=== PATIENT | male | born 1955 | race Caucasian/White ===

== ENCOUNTER 2017-12-01 13:18 | Inpatient (IN) | payer MEDICAID, OTHER ==
[2017-12-01] MEDS: METHYLPREDNISOLONE 125 MG INJ IV (14:04)
[2017-12-01] MEDS: DIPHENHYDRAMINE 50 MG INJ IV ×2 (14:04→21:46)
[2017-12-01] MEDS: FAMOTIDINE 20 MG INJ INJ (14:04)
[2017-12-01 14:07] LABS: ADD MAN DIFF? NO
[2017-12-01 14:10] LABS: WHITE BLOOD COUNT 8.6 10^3/ul (4.8-10.8)
[2017-12-01 14:10] LABS: BASOPHILS % 0.2 % (0.0-2.0); EOSINOPHILS # 0.2 10^3/ul (0.0-0.5); HEMATOCRIT 44.1 % (42.0-52.0); HEMOGLOBIN 13.9 g/dl (14.0-18.0); LYMPHOCYTES # 2.7 10^3/ul (0.8-2.9); LYMPHOCYTES % 31.5 % (15.0-51.0); MEAN CORPUSCULAR HEMOGLOBIN 25.8 pg (29.0-33.0); MEAN CORPUSCULAR HGB CONC 31.5 g/dl (32.0-37.0); MEAN PLATELET VOLUME 9.2 fl (7.4-10.4); MONOCYTE # 0.9 10^3/ul (0.3-0.9); MONOCYTES % 10.2 % (0.0-11.0); NEUTROPHIL # 4.8 10^3/ul (1.6-7.5); NEUTROPHILS % 55.9 % (39.0-77.0); PLATELET COUNT 225 10^3/UL (140-415); RED BLOOD COUNT 5.38 10^6/ul (4.70-6.10); RED CELL DISTRIBUTION WIDTH 14.6 % (11.5-14.5)
[2017-12-01 14:26] LABS: ALANINE AMINOTRANSFERASE 39 IU/L (13-69); ALBUMIN 4.5 g/dl (3.3-4.9); ALBUMIN/GLOBULIN RATIO 1.12; ALKALINE PHOSPHATASE 71 IU/L (42-121); ANION GAP 19 (8-16); ASPARTATE AMINO TRANSFERASE 36 IU/L (15-46); BILIRUBIN,INDIRECT 0.3 mg/dl (0-1.1); BILIRUBIN,TOTAL 0.3 mg/dl (0.2-1.3); BLOOD UREA NITROGEN 11 mg/dl (7-20); CARBON DIOXIDE 25 mmol/L (21-31); CHLORIDE 102 mmol/L (97-110); CREATININE 0.73 mg/dl (0.61-1.24); GLUCOSE 99 mg/dl (70-220); POTASSIUM 3.9 mmol/L (3.5-5.1); SODIUM 142 mmol/L (135-144); TOTAL PROTEIN 8.5 g/dl (6.1-8.1)
[2017-12-01 14:38] LABS: B-TYPE NATRIURETIC PEPTIDE 43 PG/ML (0-125)
[2017-12-01 14:39] LABS: TROPONIN-I < 0.012 ng/ml (0.00-0.12)
[2017-12-01] MEDS ORDERED: ACETAMINOPHEN 325 MG TAB PO ×2 (15:00→15:30)
[2017-12-01] MEDS ORDERED: ONDANSETRON 4 MG INJ IV ×2 (15:00→15:30)
[2017-12-01] MEDS ORDERED: GLUCAGON 1 MG INJ IM (15:30)
[2017-12-01] MEDS ORDERED: DEXTROSE 50% 50 ML SYRINGE IV ×2 (15:30)
[2017-12-01] MEDS ORDERED: NACL 0.9% 3 ML SYG IV (15:30)
[2017-12-01] MEDS ORDERED: DIPHENHYDRAMINE 50 MG INJ IV (15:30)
[2017-12-01] MEDS ORDERED: MAGNESIUM HYDROXIDE 30ML CUP PO (15:30)
[2017-12-01] MEDS ORDERED: DOCUSATE SODIUM 100 MG CAP PO (15:30)
[2017-12-01] MEDS ORDERED: GLUCOSE GEL 15 GRAM TUBE BUCCAL (15:30)
[2017-12-01] MEDS ORDERED: LORAZEPAM 0.5 MG TAB PO (15:30)
[2017-12-01] MEDS ORDERED: GLUCOSE GEL 15 GRAM TUBE PO ×2 (15:30)
[2017-12-01 15:52] LABS: HEMOGLOBIN A1C 6.5 % (0-5.9)
[2017-12-01] MEDS: predniSONE 20 MG TAB PO (16:45)
[2017-12-01] MEDS ORDERED: METHYLPREDNISOLONE 125 MG INJ IV (18:00)
[2017-12-01] MEDS: INSULIN ASPART [NOVOLOG] 3 ML PEN SC ×2 (18:00→20:47)
[2017-12-01 20:49] LABS: CREATINE KINASE 216 IU/L (23-200)
[2017-12-01 21:01] LABS: CK INDEX 0.9
[2017-12-01 21:02] LABS: TROPONIN-I < 0.012 ng/ml (0.00-0.12)
[2017-12-02 03:07] LABS: CREATINE KINASE 175 IU/L (23-200)
[2017-12-02 03:19] LABS: CK INDEX 1.1
[2017-12-02 03:22] LABS: CK-MB 1.85 ng/ml (0.0-2.4); TROPONIN-I < 0.012 ng/ml (0.00-0.12)
[2017-12-02] MEDS: DIPHENHYDRAMINE 50 MG INJ IV ×2 (05:41→13:43)
[2017-12-02] MEDS: PANTOPRAZOLE (EC) 40 MG TAB PO (05:41)
[2017-12-02] MEDS: AMLODIPINE 10 MG TAB PO (08:05)
[2017-12-02] MEDS: predniSONE 20 MG TAB PO (08:05)
[2017-12-02] MEDS: INSULIN ASPART [NOVOLOG] 3 ML PEN SC ×2 (08:07→12:13)
[2017-12-02] MEDS ORDERED: AMLODIPINE 5 MG TAB PO (09:00)
[2017-12-02 09:33] LABS: ADD MAN DIFF? NO
[2017-12-02 09:41] LABS: BASOPHILS % 0.1 % (0.0-2.0); HEMATOCRIT 44.1 % (42.0-52.0); HEMOGLOBIN 14.4 g/dl (14.0-18.0); LYMPHOCYTES # 1.7 10^3/ul (0.8-2.9); LYMPHOCYTES % 16.8 % (15.0-51.0); MEAN CORPUSCULAR HEMOGLOBIN 26.4 pg (29.0-33.0); MEAN CORPUSCULAR HGB CONC 32.7 g/dl (32.0-37.0); MEAN CORPUSCULAR VOLUME 80.8 fl (82.0-101.0); MEAN PLATELET VOLUME 9.6 fl (7.4-10.4); MONOCYTE # 0.7 10^3/ul (0.3-0.9); MONOCYTES % 6.8 % (0.0-11.0); NEUTROPHIL # 7.7 10^3/ul (1.6-7.5); NEUTROPHILS % 75.9 % (39.0-77.0); PLATELET COUNT 254 10^3/UL (140-415); RED BLOOD COUNT 5.46 10^6/ul (4.70-6.10); RED CELL DISTRIBUTION WIDTH 14.8 % (11.5-14.5)
[2017-12-02 09:41] LABS: WHITE BLOOD COUNT 10.2 10^3/ul (4.8-10.8)
[2017-12-02 10:12] LABS: ANION GAP 19 (8-16); BLOOD UREA NITROGEN 17 mg/dl (7-20); CALCIUM 9.3 mg/dl (8.4-10.2); CARBON DIOXIDE 22 mmol/L (21-31); CHLORIDE 104 mmol/L (97-110); CREATININE 0.84 mg/dl (0.61-1.24); GLUCOSE 196 mg/dl (70-220); MAGNESIUM 1.9 mg/dl (1.7-2.5); POTASSIUM 4.2 mmol/L (3.5-5.1); SODIUM 141 mmol/L (135-144)
== END 2017-12-02 15:30 | disposition home or self-care (01) | DRG 916 ==
LOC: E/R 13:18 → MS4 15:00
DX: T78.3XXA Angioneurotic edema, initial encounter (principal); T88.7XXA Unspecified adverse effect of drug or medicament, initial encounter; T46.4X5A Adverse effect of angiotensin-converting-enzyme inhibitors, initial encounter; I10 Essential (primary) hypertension; T78.1XXA Other adverse food reactions, not elsewhere classified, initial encounter; E11.9 Type 2 diabetes mellitus without complications; Z79.4 Long term (current) use of insulin
CPT/HCPCS: 36415; 71045; 80048; 80053; 82550; 82553; 82962; 83036; 83735; 83880; 84484; 85025; 86850; 86900; 86901; 93005; 96374; 96375; 99291-25

== ENCOUNTER 2018-01-20 04:01 | Observation (INO) | payer MEDICAID, OTHER ==
[2018-01-20] MEDS: ASPIRIN 325 MG TAB PO (06:56)
[2018-01-20 07:01] LABS: ADD MAN DIFF? NO
[2018-01-20 07:04] LABS: WHITE BLOOD COUNT 9.1 10^3/ul (4.8-10.8)
[2018-01-20 07:04] LABS: BASOPHILS % 0.2 % (0.0-2.0); EOSINOPHILS # 0.2 10^3/ul (0.0-0.5); EOSINOPHILS % 1.6 % (0.0-7.0); HEMATOCRIT 43.8 % (42.0-52.0); HEMOGLOBIN 14.5 g/dl (14.0-18.0); LYMPHOCYTES # 2.5 10^3/ul (0.8-2.9); LYMPHOCYTES % 27.6 % (15.0-51.0); MEAN CORPUSCULAR HEMOGLOBIN 27.3 pg (29.0-33.0); MEAN CORPUSCULAR HGB CONC 33.1 g/dl (32.0-37.0); MEAN CORPUSCULAR VOLUME 82.5 fl (82.0-101.0); MEAN PLATELET VOLUME 9.2 fl (7.4-10.4); MONOCYTE # 0.8 10^3/ul (0.3-0.9); MONOCYTES % 8.6 % (0.0-11.0); NEUTROPHIL # 5.6 10^3/ul (1.6-7.5); NEUTROPHILS % 61.7 % (39.0-77.0); PLATELET COUNT 240 10^3/UL (140-415); RED BLOOD COUNT 5.31 10^6/ul (4.70-6.10); RED CELL DISTRIBUTION WIDTH 14.7 % (11.5-14.5)
[2018-01-20 07:28] LABS: ALANINE AMINOTRANSFERASE 42 IU/L (13-69); ALBUMIN 4.6 g/dl (3.3-4.9); ALBUMIN/GLOBULIN RATIO 1.17; ALKALINE PHOSPHATASE 82 IU/L (42-121); ANION GAP 16 (8-16); ASPARTATE AMINO TRANSFERASE 31 IU/L (15-46); BILIRUBIN,INDIRECT 0.4 mg/dl (0-1.1); BILIRUBIN,TOTAL 0.4 mg/dl (0.2-1.3); BLOOD UREA NITROGEN 13 mg/dl (7-20); CALCIUM 9.1 mg/dl (8.4-10.2); CARBON DIOXIDE 28 mmol/L (21-31); CHLORIDE 103 mmol/L (97-110); CREATININE 0.69 mg/dl (0.61-1.24); GLUCOSE 154 mg/dl (70-220); SODIUM 143 mmol/L (135-144); TOTAL PROTEIN 8.5 g/dl (6.1-8.1)
[2018-01-20 07:40] LABS: B-TYPE NATRIURETIC PEPTIDE 25 PG/ML (0-125)
[2018-01-20 07:43] LABS: TROPONIN-I < 0.012 ng/ml (0.000-0.120)
[2018-01-20] MEDS ORDERED: morphine 2 MG INJ IV (10:00)
[2018-01-20] MEDS ORDERED: MAGNESIUM HYDROXIDE 30ML CUP PO (10:00)
[2018-01-20] MEDS ORDERED: NITROGLYCERIN (SL) 0.4 MG TAB SL (10:00)
[2018-01-20] MEDS ORDERED: ACETAMINOPHEN 325 MG TAB PO (10:00)
[2018-01-20] MEDS ORDERED: NACL 0.9% 3 ML SYG IV (10:00)
[2018-01-20] MEDS: MAGNESIUM HYDROXIDE 30ML CUP PO (10:16)
[2018-01-20 11:15] LABS: HEMOGLOBIN A1C 7.7 % (0-5.9)
[2018-01-20 11:44] LABS: HDL CHOLESTEROL 50 mg/dl (30-78); LDL CHOLESTEROL,CALCULATED 75 mg/dl; TRIGLYCERIDES 133 mg/dl (0-149)
[2018-01-20 11:44] LABS: CHOLESTEROL 152 mg/dl (100-200)
[2018-01-20] MEDS: INSULIN ASPART [NOVOLOG] 3 ML PEN SC ×3 (12:00→21:00)
[2018-01-20 12:49] LABS: CREATINE KINASE 89 IU/L (23-200)
[2018-01-20 12:58] LABS: CK INDEX 1.5
[2018-01-20 13:04] LABS: CK-MB 1.31 ng/ml (0.0-2.4); TROPONIN-I < 0.012 ng/ml (0.000-0.120)
[2018-01-20] MEDS: IBUPROFEN 600 MG TAB PO ×2 (14:00→21:06)
[2018-01-20] MEDS: ONDANSETRON 4 MG INJ IV (17:13)
[2018-01-20 17:14] LABS: CREATINE KINASE 90 IU/L (23-200)
[2018-01-20 17:27] LABS: CK INDEX 1.4
[2018-01-20 17:28] LABS: CK-MB 1.29 ng/ml (0.0-2.4); TROPONIN-I < 0.012 ng/ml (0.000-0.120)
[2018-01-20] MEDS ORDERED: NON-FORMULARY/PATIENT OWN MED (Simvastatin* (Zocor*) 40 MG) PO (21:00)
[2018-01-20] MEDS: INSULIN GLARGINE [LANtus] 3 ML PEN SC (21:05)
[2018-01-20] MEDS: FAMOTIDINE 20 MG TAB PO (21:05)
[2018-01-20] MEDS: DOCUSATE SODIUM 100 MG CAP PO (21:06)
[2018-01-20] MEDS: ATORVASTATIN 20 MG TAB PO (21:06)
[2018-01-21] MEDS: ACCU-CHEK XX (02:00)
[2018-01-21 07:29] LABS: ADD MAN DIFF? NO
[2018-01-21 07:39] LABS: WHITE BLOOD COUNT 7.1 10^3/ul (4.8-10.8)
[2018-01-21 07:39] LABS: BASOPHILS % 0.4 % (0.0-2.0); EOSINOPHILS # 0.2 10^3/ul (0.0-0.5); EOSINOPHILS % 3.1 % (0.0-7.0); HEMATOCRIT 42.6 % (42.0-52.0); HEMOGLOBIN 13.9 g/dl (14.0-18.0); LYMPHOCYTES # 2.5 10^3/ul (0.8-2.9); LYMPHOCYTES % 35.1 % (15.0-51.0); MEAN CORPUSCULAR HEMOGLOBIN 26.9 pg (29.0-33.0); MEAN CORPUSCULAR HGB CONC 32.6 g/dl (32.0-37.0); MEAN CORPUSCULAR VOLUME 82.6 fl (82.0-101.0); MEAN PLATELET VOLUME 9.2 fl (7.4-10.4); MONOCYTE # 0.7 10^3/ul (0.3-0.9); MONOCYTES % 10.3 % (0.0-11.0); NEUTROPHIL # 3.6 10^3/ul (1.6-7.5); NEUTROPHILS % 50.8 % (39.0-77.0); PLATELET COUNT 239 10^3/UL (140-415); RED BLOOD COUNT 5.16 10^6/ul (4.70-6.10); RED CELL DISTRIBUTION WIDTH 14.6 % (11.5-14.5)
[2018-01-21] MEDS: INSULIN ASPART [NOVOLOG] 3 ML PEN SC ×2 (07:53→11:50)
[2018-01-21 08:04] LABS: ALANINE AMINOTRANSFERASE 36 IU/L (13-69); ALBUMIN 4.1 g/dl (3.3-4.9); ALKALINE PHOSPHATASE 60 IU/L (42-121); ANION GAP 12 (8-16); ASPARTATE AMINO TRANSFERASE 29 IU/L (15-46); BILIRUBIN,INDIRECT 0.4 mg/dl (0-1.1); BILIRUBIN,TOTAL 0.4 mg/dl (0.2-1.3); BLOOD UREA NITROGEN 13 mg/dl (7-20); CALCIUM 8.7 mg/dl (8.4-10.2); CARBON DIOXIDE 29 mmol/L (21-31); CHLORIDE 106 mmol/L (97-110); CREATININE 0.69 mg/dl (0.61-1.24); GLUCOSE 121 mg/dl (70-220); MAGNESIUM 2.1 mg/dl (1.7-2.5); PHOSPHORUS 3.6 mg/dl (2.5-4.9); POTASSIUM 3.8 mmol/L (3.5-5.1); SODIUM 143 mmol/L (135-144); TOTAL PROTEIN 7.5 g/dl (6.1-8.1)
[2018-01-21] MEDS: FAMOTIDINE 20 MG TAB PO (08:18)
[2018-01-21] MEDS: IBUPROFEN 600 MG TAB PO ×2 (08:18→13:00)
[2018-01-21] MEDS: ASPIRIN 81 MG TAB PO (08:18)
[2018-01-21] MEDS: ENOXAPARIN 40 MG/0.4 ML SYG SC (08:19)
[2018-01-21] MEDS: AMLODIPINE 10 MG TAB PO (08:20)
== END 2018-01-21 13:30 | disposition home or self-care (01) ==
LOC: E/R 04:01 → MS3 07:53 → TEL 19:53
DX: R07.89 Other chest pain (principal); M94.0 Chondrocostal junction syndrome [Tietze]; I10 Essential (primary) hypertension; E11.9 Type 2 diabetes mellitus without complications; E78.5 Hyperlipidemia, unspecified; M19.90 Unspecified osteoarthritis, unspecified site; K59.00 Constipation, unspecified
CPT/HCPCS: 36415; 71045; 80053; 80061; 82550; 82553; 82962; 83036; 83735; 83880; 84100; 84443; 84484; 85025; 93005; 93306; 99285-25; G0378

== ENCOUNTER → 2018-04-18 | Emergency (ER) | payer OTHER, MEDICAID | END | disposition home or self-care (01) | LOC: E/R 18:53 | DX: S90.511A Abrasion, right ankle, initial encounter (principal); L03.115 Cellulitis of right lower limb; I10 Essential (primary) hypertension; E11.9 Type 2 diabetes mellitus without complications; W18.39XA Other fall on same level, initial encounter; Y92.9 Unspecified place or not applicable; Z79.82 Long term (current) use of aspirin; Z79.84 Long term (current) use of oral hypoglycemic drugs | CPT/HCPCS: 82962; 99284 ==

== ENCOUNTER 2018-05-29 18:06 | Observation (INO) | payer OTHER ==
[2018-05-29 19:00] LABS: ADD MAN DIFF? NO
[2018-05-29 19:01] LABS: BASOPHILS % 0.4 % (0.0-2.0); EOSINOPHILS # 0.3 10^3/ul (0.0-0.5); EOSINOPHILS % 3.1 % (0.0-7.0); HEMOGLOBIN 14.2 g/dl (14.0-18.0); LYMPHOCYTES # 2.5 10^3/ul (0.8-2.9); LYMPHOCYTES % 30.8 % (15.0-51.0); MEAN CORPUSCULAR HEMOGLOBIN 26.6 pg (29.0-33.0); MEAN CORPUSCULAR VOLUME 80.7 fl (82.0-101.0); MEAN PLATELET VOLUME 9.1 fl (7.4-10.4); MONOCYTE # 1.1 10^3/ul (0.3-0.9); MONOCYTES % 12.9 % (0.0-11.0); NEUTROPHIL # 4.3 10^3/ul (1.6-7.5); NEUTROPHILS % 52.6 % (39.0-77.0); PLATELET COUNT 259 10^3/UL (140-415); RED BLOOD COUNT 5.33 10^6/ul (4.70-6.10); RED CELL DISTRIBUTION WIDTH 13.7 % (11.5-14.5)
[2018-05-29 19:01] LABS: WHITE BLOOD COUNT 8.1 10^3/ul (4.8-10.8)
[2018-05-29 19:02] LABS: URINE BLOOD (Dip) POC Trace-intact (NEGATIVE); URINE GLUCOSE (Dip) POC Negative (NEGATIVE); URINE KETONES (Dip) POC Negative (NEGATIVE); URINE LEUKOCYTE EST (Dip) POC Trace (NEGATIVE); URINE NITRITE (Dip) POC Negative (NEGATIVE); URINE TOTAL PROTEIN POC Trace (NEGATIVE)
[2018-05-29] MEDS: ASPIRIN 325 MG TAB PO (19:09)
[2018-05-29] MEDS: NITROGLYCERIN 2% 1 GM OINT PKT TD (19:10)
[2018-05-29] MEDS: NITROGLYCERIN (SL) 0.4 MG TAB SL (19:10)
[2018-05-29 19:16] LABS: INR 0.95; PARTIAL THROMBOPLASTIN TIME 28.6 Sec (23.0-35.0); PROTIME 12.8 Sec (11.9-14.9)
[2018-05-29 19:17] LABS: ANION GAP 15 (8-16); BLOOD UREA NITROGEN 11 mg/dl (7-20); CALCIUM 9.6 mg/dl (8.4-10.2); CARBON DIOXIDE 28 mmol/L (21-31); CHLORIDE 98 mmol/L (97-110); CREATININE 0.69 mg/dl (0.61-1.24); GLUCOSE 166 mg/dl (70-220); POTASSIUM 3.9 mmol/L (3.5-5.1); SODIUM 137 mmol/L (135-144)
[2018-05-29 19:29] LABS: TROPONIN-I < 0.012 ng/ml (0.000-0.120)
[2018-05-29] MEDS ORDERED: ACETAMINOPHEN 325 MG TAB PO (21:00)
[2018-05-29] MEDS ORDERED: ONDANSETRON 4 MG INJ IV ×2 (21:00→22:30)
[2018-05-29] MEDS ORDERED: ALBUTEROL/IPRATROPIUM (NEB) 3 ML AMP HHN (22:30)
[2018-05-29] MEDS ORDERED: NACL 0.9% 3 ML SYG IV (22:30)
[2018-05-29] MEDS ORDERED: NITROGLYCERIN (SL) 0.4 MG TAB SL (22:30)
[2018-05-29 22:51] LABS: CREATINE KINASE 131 IU/L (23-200)
[2018-05-29 23:03] LABS: CK INDEX 1.4; CK-MB 1.82 ng/ml (0.0-2.4); TROPONIN-I < 0.012 ng/ml (0.000-0.120)
[2018-05-29] MEDS: ACETAMINOPHEN 325 MG TAB PO (23:05)
[2018-05-30 05:59] LABS: ADD MAN DIFF? NO
[2018-05-30 06:11] LABS: BASOPHILS % 0.2 % (0.0-2.0); EOSINOPHILS # 0.3 10^3/ul (0.0-0.5); HEMATOCRIT 40.7 % (42.0-52.0); HEMOGLOBIN 13.3 g/dl (14.0-18.0); LYMPHOCYTES # 2.5 10^3/ul (0.8-2.9); LYMPHOCYTES % 31.1 % (15.0-51.0); MEAN CORPUSCULAR HEMOGLOBIN 26.7 pg (29.0-33.0); MEAN CORPUSCULAR HGB CONC 32.7 g/dl (32.0-37.0); MEAN CORPUSCULAR VOLUME 81.6 fl (82.0-101.0); MEAN PLATELET VOLUME 9.6 fl (7.4-10.4); NEUTROPHIL # 4.2 10^3/ul (1.6-7.5); NEUTROPHILS % 52.6 % (39.0-77.0); PLATELET COUNT 240 10^3/UL (140-415); RED BLOOD COUNT 4.99 10^6/ul (4.70-6.10)
[2018-05-30 06:27] LABS: CREATINE KINASE 120 IU/L (23-200)
[2018-05-30 06:32] LABS: HEMOGLOBIN A1C 7.1 % (0-5.9)
[2018-05-30 06:40] LABS: CK INDEX 1.4; CK-MB 1.71 ng/ml (0.0-2.4); TROPONIN-I < 0.012 ng/ml (0.000-0.120)
[2018-05-30] MEDS: HYDROCODONE/APAP (5/325) TAB PO ×2 (06:42→21:20)
[2018-05-30 06:48] LABS: ALANINE AMINOTRANSFERASE 47 IU/L (13-69); ALBUMIN 3.4 g/dl (3.3-4.9); ALKALINE PHOSPHATASE 58 IU/L (42-121); ANION GAP 13 (8-16); ASPARTATE AMINO TRANSFERASE 40 IU/L (15-46); BILIRUBIN,INDIRECT 0.4 mg/dl (0-1.1); BILIRUBIN,TOTAL 0.4 mg/dl (0.2-1.3); BLOOD UREA NITROGEN 14 mg/dl (7-20); CALCIUM 9.5 mg/dl (8.4-10.2); CARBON DIOXIDE 29 mmol/L (21-31); CHLORIDE 100 mmol/L (97-110); CHOL/HDL RATIO 3.3 RATIO; CHOLESTEROL 129 mg/dl (100-200); CREATININE 0.82 mg/dl (0.61-1.24); GLUCOSE 170 mg/dl (70-220); HDL CHOLESTEROL 38 mg/dl (30-78); LDL CHOLESTEROL,CALCULATED 64 mg/dl; MAGNESIUM 1.7 mg/dl (1.7-2.5); POTASSIUM 4.2 mmol/L (3.5-5.1); SODIUM 138 mmol/L (135-144); TOTAL PROTEIN 6.8 g/dl (6.1-8.1); TRIGLYCERIDES 137 mg/dl (0-149)
[2018-05-30] MEDS ORDERED: GLUCOSE GEL 15 GRAM TUBE PO ×2 (07:00)
[2018-05-30] MEDS ORDERED: GLUCOSE GEL 15 GRAM TUBE BUCCAL (07:00)
[2018-05-30] MEDS ORDERED: GLUCAGON 1 MG INJ IM (07:00)
[2018-05-30] MEDS ORDERED: DEXTROSE 50% 50 ML SYRINGE IV ×2 (07:00)
[2018-05-30] MEDS: INSULIN ASPART [NOVOLOG] 3 ML PEN SC ×4 (07:22→21:00)
[2018-05-30] MEDS: AMLODIPINE 10 MG TAB PO (08:19)
[2018-05-30] MEDS: ENOXAPARIN 40 MG/0.4 ML SYG SC (08:21)
[2018-05-30] MEDS ORDERED: NON-FORMULARY/PATIENT OWN MED (Sitagliptin Phos/Metformin HCl (Janumet 50-1,000 mg Tablet) PO (09:00)
[2018-05-30] MEDS: ASPIRIN 81 MG TAB PO (09:46)
[2018-05-30] MEDS: LINAGLIPTIN 5 MG TABLET PO (11:45)
[2018-05-30] MEDS: metFORMIN 500 MG TAB PO ×2 (11:45→17:10)
[2018-05-30] MEDS: DOXAZOSIN 1 MG TAB PO ×2 (12:09→17:48)
[2018-05-30] MEDS: ACETAMINOPHEN 325 MG TAB PO (17:11)
[2018-05-30] MEDS ORDERED: NON-FORMULARY/PATIENT OWN MED (Simvastatin* (Zocor*) 40 MG) PO (21:00)
[2018-05-30] MEDS ORDERED: ATORVASTATIN 20 MG TAB PO (21:00)
[2018-05-30] MEDS: ATORVASTATIN 40 MG TAB PO (21:13)
[2018-05-30] MEDS: DOXAZOSIN 2 MG TAB PO (21:17)
[2018-05-31] MEDS: ACCU-CHEK XX (02:00)
[2018-05-31] MEDS: ACETAMINOPHEN 325 MG TAB PO (06:14)
[2018-05-31] MEDS: INSULIN ASPART [NOVOLOG] 3 ML PEN SC ×4 (07:44→20:03)
[2018-05-31] MEDS: metFORMIN 500 MG TAB PO ×2 (07:45→17:29)
[2018-05-31] MEDS: ASPIRIN 81 MG TAB PO (08:07)
[2018-05-31] MEDS: LINAGLIPTIN 5 MG TABLET PO (08:07)
[2018-05-31] MEDS: ENOXAPARIN 40 MG/0.4 ML SYG SC (08:17)
[2018-05-31] MEDS: PANTOPRAZOLE (EC) 40 MG TAB PO (12:47)
[2018-05-31] MEDS: DOCUSATE SODIUM 250 MG CAP PO (12:47)
[2018-05-31] MEDS: POLYETHYLENE GLYCOL 17 GM PACKET PO (12:47)
[2018-05-31] MEDS: ATORVASTATIN 40 MG TAB PO (20:01)
[2018-05-31] MEDS: DOXAZOSIN 2 MG TAB PO (20:01)
[2018-06-01] MEDS: ACCU-CHEK XX (01:48)
[2018-06-01] MEDS: PANTOPRAZOLE (EC) 40 MG TAB PO (06:13)
[2018-06-01] MEDS: INSULIN ASPART [NOVOLOG] 3 ML PEN SC ×2 (08:33→12:29)
[2018-06-01] MEDS: DOCUSATE SODIUM 250 MG CAP PO (08:49)
[2018-06-01] MEDS: metFORMIN 500 MG TAB PO (08:49)
[2018-06-01] MEDS: LINAGLIPTIN 5 MG TABLET PO (08:49)
[2018-06-01] MEDS: ASPIRIN 81 MG TAB PO (08:49)
[2018-06-01] MEDS: POLYETHYLENE GLYCOL 17 GM PACKET PO (08:49)
[2018-06-01] MEDS: ENOXAPARIN 40 MG/0.4 ML SYG SC (08:54)
== END 2018-06-01 16:10 | disposition home or self-care (01) ==
LOC: E/R 18:06 → 6WM 20:55
DX: R07.9 Chest pain, unspecified (principal); I16.0 Hypertensive urgency; I10 Essential (primary) hypertension; E11.9 Type 2 diabetes mellitus without complications; Z79.82 Long term (current) use of aspirin; E78.5 Hyperlipidemia, unspecified; M19.90 Unspecified osteoarthritis, unspecified site; Z87.891 Personal history of nicotine dependence; N40.0 Benign prostatic hyperplasia without lower urinary tract symptoms; F41.9 Anxiety disorder, unspecified
CPT/HCPCS: 36415; 71045; 80048; 80053; 80061; 81003; 82550; 82553; 82962; 83036; 83735; 84443; 84484; 85025; 85610; 85730; 93005; 93306; 99285-25; G0378

== ENCOUNTER 2018-10-04 23:05 | Inpatient (IN) | payer OTHER ==
[2018-10-05 02:55] LABS: ADD MAN DIFF? NO
[2018-10-05 02:57] LABS: WHITE BLOOD COUNT 9.5 10^3/ul (4.8-10.8)
[2018-10-05 02:57] LABS: BASOPHILS % 0.3 % (0.0-2.0); EOSINOPHILS # 0.4 10^3/ul (0.0-0.5); EOSINOPHILS % 4.4 % (0.0-7.0); HEMATOCRIT 40.6 % (42.0-52.0); HEMOGLOBIN 13.3 g/dl (14.0-18.0); LYMPHOCYTES # 3.5 10^3/ul (0.8-2.9); LYMPHOCYTES % 37.1 % (15.0-51.0); MEAN CORPUSCULAR HEMOGLOBIN 28.9 pg (29.0-33.0); MEAN CORPUSCULAR HGB CONC 32.8 g/dl (32.0-37.0); MEAN CORPUSCULAR VOLUME 88.3 fl (82.0-101.0); MEAN PLATELET VOLUME 9.1 fl (7.4-10.4); MONOCYTE # 0.9 10^3/ul (0.3-0.9); MONOCYTES % 9.6 % (0.0-11.0); NEUTROPHIL # 4.5 10^3/ul (1.6-7.5); NEUTROPHILS % 48.1 % (39.0-77.0); PLATELET COUNT 244 10^3/UL (140-415); RED CELL DISTRIBUTION WIDTH 13.7 % (11.5-14.5)
[2018-10-05 03:18] LABS: ALANINE AMINOTRANSFERASE 29 IU/L (13-69); ALBUMIN 4.5 g/dl (3.3-4.9); ALBUMIN/GLOBULIN RATIO 1.28; ALKALINE PHOSPHATASE 82 IU/L (42-121); ANION GAP 8 (5-13); ASPARTATE AMINO TRANSFERASE 29 IU/L (15-46); BILIRUBIN,INDIRECT 0.2 mg/dl (0-1.1); BILIRUBIN,TOTAL 0.2 mg/dl (0.2-1.3); BLOOD UREA NITROGEN 16 mg/dl (7-20); CALCIUM 9.6 mg/dl (8.4-10.2); CARBON DIOXIDE 34 mmol/L (21-31); CHLORIDE 99 mmol/L (97-110); CREATININE 0.69 mg/dl (0.61-1.24); Estimated GFR > 60 mL/min (>60); GLUCOSE 108 mg/dl (70-220); POTASSIUM 4.3 mmol/L (3.5-5.1); SODIUM 141 mmol/L (135-144)
[2018-10-05 03:32] LABS: B-TYPE NATRIURETIC PEPTIDE 60 PG/ML (0-125); TROPONIN-I < 0.012 ng/ml (0.000-0.120)
[2018-10-05] MEDS ORDERED: NITROGLYCERIN (SL) 0.4 MG TAB SL (07:00)
[2018-10-05] MEDS ORDERED: ONDANSETRON 4 MG INJ IV (07:00)
[2018-10-05] MEDS ORDERED: NACL 0.9% 3 ML SYG IV (07:00)
[2018-10-05] MEDS ORDERED: HYDROCODONE/APAP (5/325) TAB PO (07:00)
[2018-10-05] MEDS ORDERED: ACETAMINOPHEN 325 MG TAB PO (07:00)
[2018-10-05] MEDS ORDERED: morphine 2 MG INJ IV (07:00)
[2018-10-05] MEDS ORDERED: GLUCOSE GEL 15 GRAM TUBE BUCCAL (07:30)
[2018-10-05] MEDS ORDERED: DEXTROSE 50% 50 ML SYRINGE IV ×2 (07:30)
[2018-10-05] MEDS ORDERED: GLUCOSE GEL 15 GRAM TUBE PO ×2 (07:30)
[2018-10-05] MEDS ORDERED: GLUCAGON 1 MG INJ IM (07:30)
[2018-10-05] MEDS: INSULIN ASPART [NOVOLOG] 3 ML PEN SC ×4 (08:00→20:35)
[2018-10-05 08:39] LABS: HEMOGLOBIN A1C 7.7 % (0-5.9)
[2018-10-05 08:51] LABS: CHOL/HDL RATIO 2.8 RATIO; HDL CHOLESTEROL 38 mg/dl (30-78); LDL CHOLESTEROL,CALCULATED 48 mg/dl; TRIGLYCERIDES 116 mg/dl (0-149)
[2018-10-05 08:51] LABS: CHOLESTEROL 109 mg/dl (100-200)
[2018-10-05] MEDS: DEXTROSE 5%-0.45% NACL 1,000 ML IV ×2 (08:52→20:14)
[2018-10-05] MEDS: METOPROLOL (XL) 25 MG TAB PO (08:52)
[2018-10-05] MEDS: CHOLECALCIFEROL 2,000 UNIT CAP PO (08:52)
[2018-10-05] MEDS: HYDROCHLOROTHIAZIDE 12.5 MG CAP PO (08:53)
[2018-10-05] MEDS: AMLODIPINE 10 MG TAB PO (08:53)
[2018-10-05] MEDS: ASPIRIN 81 MG TAB PO (08:53)
[2018-10-05] MEDS: ENOXAPARIN 40 MG/0.4 ML SYG SC (08:56)
[2018-10-05 08:59] LABS: CREATINE KINASE 75 IU/L (23-200)
[2018-10-05] MEDS ORDERED: CHOLECALCIFEROL 2000 UNIT PO (09:00)
[2018-10-05 09:06] LABS: CK INDEX 1.2; CK-MB 0.91 ng/ml (0.0-2.4); TROPONIN-I < 0.012 ng/ml (0.000-0.120)
[2018-10-05] MEDS: FAMOTIDINE 20 MG TAB PO (09:48)
[2018-10-05 14:31] LABS: CREATINE KINASE 76 IU/L (23-200)
[2018-10-05 14:45] LABS: CK INDEX 1.4; CK-MB 1.04 ng/ml (0.0-2.4); TROPONIN-I < 0.012 ng/ml (0.000-0.120)
[2018-10-05] MEDS: ATORVASTATIN 20 MG TAB PO (20:34)
[2018-10-05] MEDS ORDERED: morphine LIQ (10 MG/5 ML) CUP PO (21:30)
[2018-10-06 05:56] LABS: ADD MAN DIFF? NO
[2018-10-06] MEDS ORDERED: PANTOPRAZOLE 40 MG INJ IV (06:00)
[2018-10-06] MEDS ORDERED: PANTOPRAZOLE (EC) 40 MG TAB PO (06:00)
[2018-10-06 06:04] LABS: WHITE BLOOD COUNT 8.6 10^3/ul (4.8-10.8)
[2018-10-06 06:04] LABS: BASOPHILS % 0.2 % (0.0-2.0); EOSINOPHILS # 0.3 10^3/ul (0.0-0.5); EOSINOPHILS % 3.5 % (0.0-7.0); HEMATOCRIT 41.4 % (42.0-52.0); HEMOGLOBIN 13.9 g/dl (14.0-18.0); LYMPHOCYTES # 2.7 10^3/ul (0.8-2.9); LYMPHOCYTES % 31.2 % (15.0-51.0); MEAN CORPUSCULAR HGB CONC 33.6 g/dl (32.0-37.0); MEAN CORPUSCULAR VOLUME 86.4 fl (82.0-101.0); MEAN PLATELET VOLUME 9.3 fl (7.4-10.4); MONOCYTE # 0.8 10^3/ul (0.3-0.9); MONOCYTES % 9.2 % (0.0-11.0); NEUTROPHIL # 4.8 10^3/ul (1.6-7.5); NEUTROPHILS % 55.8 % (39.0-77.0); PLATELET COUNT 244 10^3/UL (140-415); RED BLOOD COUNT 4.79 10^6/ul (4.70-6.10); RED CELL DISTRIBUTION WIDTH 13.6 % (11.5-14.5)
[2018-10-06 07:00] LABS: ANION GAP 8 (5-13); BLOOD UREA NITROGEN 13 mg/dl (7-20); CALCIUM 9.4 mg/dl (8.4-10.2); CARBON DIOXIDE 31 mmol/L (21-31); CHLORIDE 100 mmol/L (97-110); CREATININE 0.68 mg/dl (0.61-1.24); Estimated GFR > 60 mL/min (>60); GLUCOSE 110 mg/dl (70-220); MAGNESIUM 1.9 mg/dl (1.7-2.5); POTASSIUM 3.7 mmol/L (3.5-5.1); SODIUM 139 mmol/L (135-144)
[2018-10-06] MEDS: FAMOTIDINE 20 MG TAB PO (07:53)
[2018-10-06] MEDS: INSULIN ASPART [NOVOLOG] 3 ML PEN SC (07:53)
[2018-10-06] MEDS: ASPIRIN 81 MG TAB PO (07:53)
[2018-10-06] MEDS: METOPROLOL (XL) 25 MG TAB PO (07:53)
[2018-10-06] MEDS: HYDROCHLOROTHIAZIDE 12.5 MG CAP PO (07:53)
[2018-10-06] MEDS: AMLODIPINE 10 MG TAB PO (07:53)
[2018-10-06] MEDS: CHOLECALCIFEROL 2,000 UNIT CAP PO (07:54)
[2018-10-06] MEDS: DEXTROSE 5%-0.45% NACL 1,000 ML IV (08:09)
[2018-10-06] MEDS: ENOXAPARIN 40 MG/0.4 ML SYG SC (08:09)
== END 2018-10-06 11:05 | disposition home or self-care (01) | DRG 206 ==
LOC: E/R 23:05 → 6WM 10-05 05:13
DX: M94.0 Chondrocostal junction syndrome [Tietze] (principal); R07.9 Chest pain, unspecified; I10 Essential (primary) hypertension; E78.5 Hyperlipidemia, unspecified; E11.9 Type 2 diabetes mellitus without complications; E55.9 Vitamin D deficiency, unspecified; E78.00 Pure hypercholesterolemia, unspecified
CPT/HCPCS: 36415; 71045; 80048; 80053; 80061; 82550; 82553; 82962; 83036; 83735; 83880; 84443; 84484; 85025; 93005; 99285-25

== ENCOUNTER 2019-02-14 12:05 | Emergency (ER) | payer OTHER ==
[2019-02-14 14:47] LABS: ADD MAN DIFF? NO
[2019-02-14 14:55] LABS: BASOPHILS % 0.3 % (0.0-2.0); EOSINOPHILS # 0.4 10^3/ul (0.0-0.5); EOSINOPHILS % 4.6 % (0.0-7.0); HEMATOCRIT 41.7 % (42.0-52.0); HEMOGLOBIN 13.7 g/dl (14.0-18.0); LYMPHOCYTES # 3.2 10^3/ul (0.8-2.9); MEAN CORPUSCULAR HEMOGLOBIN 27.5 pg (29.0-33.0); MEAN CORPUSCULAR HGB CONC 32.9 g/dl (32.0-37.0); MEAN CORPUSCULAR VOLUME 83.7 fl (82.0-101.0); MEAN PLATELET VOLUME 9.2 fl (7.4-10.4); MONOCYTES % 10.9 % (0.0-11.0); NEUTROPHIL # 4.5 10^3/ul (1.6-7.5); PLATELET COUNT 268 10^3/UL (140-415); RED BLOOD COUNT 4.98 10^6/ul (4.70-6.10); RED CELL DISTRIBUTION WIDTH 12.6 % (11.5-14.5)
[2019-02-14 14:55] LABS: WHITE BLOOD COUNT 9.1 10^3/ul (4.8-10.8)
[2019-02-14 15:25] LABS: ALANINE AMINOTRANSFERASE 25 IU/L (13-69); ALBUMIN 4.6 g/dl (3.3-4.9); ALBUMIN/GLOBULIN RATIO 1.17; ALKALINE PHOSPHATASE 88 IU/L (42-121); ANION GAP 15 (5-13); ASPARTATE AMINO TRANSFERASE 26 IU/L (15-46); BILIRUBIN,INDIRECT 0.4 mg/dl (0-1.1); BILIRUBIN,TOTAL 0.4 mg/dl (0.2-1.3); BLOOD UREA NITROGEN 15 mg/dl (7-20); CALCIUM 9.6 mg/dl (8.4-10.2); CARBON DIOXIDE 29 mmol/L (21-31); CHLORIDE 96 mmol/L (97-110); CREATININE 0.96 mg/dl (0.61-1.24); Estimated GFR > 60 mL/min (>60); GLUCOSE 150 mg/dl (70-220); LIPASE 134 U/L (23-300); SODIUM 140 mmol/L (135-144)
[2019-02-14 15:48] LABS: TOTAL PROTEIN 8.5 g/dl (6.1-8.1)
[2019-02-14 16:01] LABS: URINE PH (Dip) POC 7.5 (5.0-8.5)
[2019-02-14 16:01] LABS: URINE BLOOD (Dip) POC Trace-intact (NEGATIVE); URINE GLUCOSE (Dip) POC Negative (NEGATIVE); URINE KETONES (Dip) POC Negative (NEGATIVE); URINE LEUKOCYTE EST (Dip) POC Negative (NEGATIVE); URINE NITRITE (Dip) POC Negative (NEGATIVE); URINE TOTAL PROTEIN POC Negative (NEGATIVE)
[2019-02-14] MEDS: KETOROLAC 30 MG INJ IV (16:13)
== END 2019-02-14 16:50 | disposition home or self-care (01) ==
LOC: E/R 12:05
DX: K76.0 Fatty (change of) liver, not elsewhere classified (principal); D64.9 Anemia, unspecified; K59.00 Constipation, unspecified; I10 Essential (primary) hypertension; E11.9 Type 2 diabetes mellitus without complications; Z79.82 Long term (current) use of aspirin; Z79.84 Long term (current) use of oral hypoglycemic drugs
CPT/HCPCS: 36415; 76705; 80053; 81003; 83690; 85025; 96374; 99285-25

== ENCOUNTER 2019-03-24 08:30 | Day surgery (SDC) | payer OTHER ==
[2019-03-24] MEDS ORDERED: METOCLOPRAMIDE 10 MG INJ (09:40)
[2019-03-24] MEDS ORDERED: FENTAnyl 50 MCG/ML VIAL (09:40)
[2019-03-24] MEDS ORDERED: EPHEDrine 25 MG/5 ML SYG (09:40)
[2019-03-24] MEDS ORDERED: PROPOFOL 40 ML (10:10)
== END 2019-03-24 12:17 | disposition home or self-care (01) ==
LOC: GIL 08:30
DX: D12.5 Benign neoplasm of sigmoid colon (principal); D12.4 Benign neoplasm of descending colon; D12.3 Benign neoplasm of transverse colon; K57.30 Diverticulosis of large intestine without perforation or abscess without bleeding; K29.30 Chronic superficial gastritis without bleeding; E11.9 Type 2 diabetes mellitus without complications; I10 Essential (primary) hypertension; Z79.82 Long term (current) use of aspirin
CPT/HCPCS: 43239; 82962; 88305; 88312

== ENCOUNTER 2019-04-24 04:03 | Emergency (ER) | payer OTHER ==
[2019-04-24 04:27] LABS: ADD MAN DIFF? NO
[2019-04-24 04:28] LABS: BASOPHILS % 0.2 % (0.0-2.0); EOSINOPHILS # 0.3 10^3/ul (0.0-0.5); EOSINOPHILS % 4.1 % (0.0-7.0); HEMATOCRIT 39.3 % (42.0-52.0); HEMOGLOBIN 12.4 g/dl (14.0-18.0); LYMPHOCYTES # 2.9 10^3/ul (0.8-2.9); LYMPHOCYTES % 35.8 % (15.0-51.0); MEAN CORPUSCULAR HEMOGLOBIN 26.4 pg (29.0-33.0); MEAN CORPUSCULAR HGB CONC 31.6 g/dl (32.0-37.0); MEAN CORPUSCULAR VOLUME 83.6 fl (82.0-101.0); MEAN PLATELET VOLUME 8.7 fl (7.4-10.4); MONOCYTE # 0.8 10^3/ul (0.3-0.9); MONOCYTES % 10.1 % (0.0-11.0); NEUTROPHILS % 49.7 % (39.0-77.0); PLATELET COUNT 233 10^3/UL (140-415); RED CELL DISTRIBUTION WIDTH 13.7 % (11.5-14.5)
[2019-04-24 04:28] LABS: WHITE BLOOD COUNT 8.1 10^3/ul (4.8-10.8)
[2019-04-24 04:53] LABS: ALANINE AMINOTRANSFERASE 29 IU/L (13-69); ALBUMIN 4.2 g/dl (3.3-4.9); ALBUMIN/GLOBULIN RATIO 1.31; ALKALINE PHOSPHATASE 63 IU/L (42-121); ANION GAP 9 (5-13); ASPARTATE AMINO TRANSFERASE 27 IU/L (15-46); BILIRUBIN,INDIRECT 0.3 mg/dl (0-1.1); BILIRUBIN,TOTAL 0.3 mg/dl (0.2-1.3); BLOOD UREA NITROGEN 17 mg/dl (7-20); CALCIUM 9.1 mg/dl (8.4-10.2); CARBON DIOXIDE 29 mmol/L (21-31); CHLORIDE 99 mmol/L (97-110); CREATININE 0.74 mg/dl (0.61-1.24); Estimated GFR > 60 mL/min (>60); GLUCOSE 128 mg/dl (70-220); SODIUM 137 mmol/L (135-144); TOTAL PROTEIN 7.4 g/dl (6.1-8.1)
[2019-04-24 05:05] LABS: TROPONIN-I < 0.012 ng/ml (0.000-0.120)
[2019-04-24 05:21] LABS: POTASSIUM 3.7 mmol/L (3.5-5.1)
[2019-04-24 05:45] LABS: ADD UMIC NO; UR ASCORBIC ACID 20 mg/dL (NEGATIVE); UR BILIRUBIN (Dip) NEGATIVE (NEGATIVE); UR BLOOD (Dip) NEGATIVE (NEGATIVE); UR CLARITY CLEAR (CLEAR); UR COLOR YELLOW (YELLOW); UR GLUCOSE (Dip) NEGATIVE (NEGATIVE); UR KETONES (Dip) NEGATIVE (NEGATIVE); UR LEUKOCYTE ESTERASE (Dip) NEGATIVE Leu/ul (NEGATIVE); UR NITRITE (Dip) NEGATIVE (NEGATIVE); UR SPECIFIC GRAVITY (Dip) 1.021 (1.003-1.030); UR TOTAL PROTEIN (Dip) NEGATIVE (NEGATIVE); UR UROBILINOGEN (Dip) NEGATIVE (NEGATIVE)
== END 2019-04-24 06:20 | disposition home or self-care (01) ==
LOC: E/R 04:03
DX: R07.89 Other chest pain (principal); R30.0 Dysuria; I10 Essential (primary) hypertension; F17.210 Nicotine dependence, cigarettes, uncomplicated
CPT/HCPCS: 36415; 71045; 80053; 81003; 84484; 85025; 93005; 99284-25